=== PATIENT | male | born 1955 | race Caucasian/White ===

== ENCOUNTER 2019-05-20 13:24 | Inpatient (IN) ==
[2019-05-20] MEDS ORDERED: VANCOMYCIN 1 GM/NS 1 GM/250 ML IVPB IV ONE (16:24)
[2019-05-20 17:17] LABS: BASO# 0.03 X1000 (0.0-0.2); BASO% 0.3 % (0.0-0.8); EOS# 0.05 X1000 (0.0-0.7); EOS% 0.5 % (0.0-10.0); HEMATOCRIT 40.6 % (42.0-52.0); HEMOGLOBIN 14.4 g/dL (14.0-18.0); IMM GRAN# 0.03 X1000 (0.0-0.04); IMM GRAN% 0.3 % (0.0-0.5); LYMPH# 1.66 X1000 (1.2-3.4); LYMPH% 18.2 % (20.5-51.1); MCH 30.6 PG (27-31); MCHC 35.5 g/dL (33-37); MCV 86.2 FL (81-99); MONO# 0.62 X1000 (0.11-0.59); MONO% 6.8 % (1.7-9.3); MPV 11.2 FL (7.4-10.4); NEUT# 6.72 X1000 (1.4-6.5); NEUT% 73.9 % (42.2-75.2); PLT 144 X1000 (130-400); RBC 4.71 XMIL (4.7-6.1); RDW 12.5 % (11.5-14.5); WBC 9.11 X1000 (4.8-10.8)
[2019-05-20 18:05] LABS: AGAP 14; ALB/GLOB RATIO 1.3; ALBUMIN 3.7 g/dL (3.5-5.0); ALKALINE PHOSPHATASE 141 U/L (32-122); BUN 17 mg/dL (8-22); CALCIUM 8.7 mg/dL (8.8-10.2); CHLORIDE 97 mmol/L (98-107); COSMO 283; ESTIMATED GFR > 60; GLUCOSE 233 mg/dL (70-104); GOT 16 U/L (10-34); GPT 10 U/L (10-44); LIPASE 20 U/L (13-60); SODIUM 137 mmol/L (136-145); TCO2 26 mmol/L (25-35); TOTAL BILIRUBIN 0.77 mg/dL (0.20-1.00); TOTAL PROTEIN 6.6 g/dL (6.3-8.3)
[2019-05-20 18:14] LABS: URINE SOURCE CLEAN CATCH
[2019-05-20 18:30] LABS: BILIRUBIN URINE NEGATIVE (NEGATIVE); BLOOD URINE NEGATIVE (NEGATIVE); COLOR YELLOW; GLUCOSE URINE >1000 mg/dL (NEGATIVE); KETONE URINE 40 mg/dL (NEGATIVE); LEUKOCYTES URINE NEGATIVE (NEGATIVE); NITRITE URINE NEGATIVE (NEGATIVE); PROTEIN URINE TRACE mg/dL (NEGATIVE); SP GRAVITY URINE 1.034; TURBIDITY URINE CLEAR (CLEAR); UROBILINOGEN URINE 6 mg/dL (NORMAL)
[2019-05-20 19:04] LABS: UR EPITHELIAL CELLS <10 /HPF (<10); URINE BACTERIA NEGATIVE /HPF; URINE RBC <10 /HPF (<10); URINE WBC <10 /HPF (<10)
[2019-05-20 19:23] LABS: URINE CRYSTALS NONE SEEN
[2019-05-20] MEDS ORDERED: ROCEPHIN 1 GM in NS 50 ML IV ONE (19:39)
[2019-05-20] MEDS ORDERED: MORPHINE IV ONE (19:51)
--- NOTE | 2019-05-20 20:11 | PROVIDER DOCUMENTATION ---
This chart was entered by Joon Ramirez Scribe, acting as scribe for Claus Grimm MD. HPI-General Adult - General Chief Complaint: Abscess Stated Complaint: ABSCESS,FEVER Time Seen by Provider: 05/20/19 15:45 Source: patient Allergies/Adverse Reactions: Patient Allergies Allergy/AdvReac Type Severity Reaction Status Date / Time meperidine HCl * Allergy Severe Unknown Verified 05/20/19 16:42 [From Demerol] Home Medications: Home Medication List Medication Instructions Recorded Confirmed Last Taken Type Bupropion S.r. [Wellbutrin Sr] 150 mg PO BID 09/20/12 05/20/19 05/17/19 History Insulin Glargine [Lantus] 80 units SUBQ DAILY 09/20/12 05/20/19 05/17/19 History - History of Present Illness -Gen Adult Nature of Presenting Problems: Pt is a 63 yom who presents to the ED with a CC of an abscess. Pt reports he has had an abscess on his left buttocks. Pt reports he has had the abscess for five days. Pt also complains of having a fever. Pt reports he went to [facility] yesterday and states he had the abscess lanced and drained. Pt reports he had the abscess unpacked today and states he is worried about the infection spreading. Pt reports a hx of diabetes. Upon examination the pt has a 5cm abscess to the left inguinal fold of his left buttocks that is erythematic and has fluctuance. Pt reports he was put on antibiotics yesterday. Location of Pain/Injury: reports: other (Left buttocks) Quality of Pain: reports: aching Severity: reports: mild Onset/Duration: reports: 5 days ago Timing: reports: still present Associated Symptoms: reports: other (Abscess) Similar Symptoms Previously?: Yes Recently seen or treated by another doctor?: Yes Review of Systems - Adult - REVIEW OF SYSTEMS - ADULT Constitutional: reports: see HPI, fever Eyes: reports: no symptoms reported Ears, Nose, Mouth & Throat: reports: no symptoms reported Cardiovascular: reports: no symptoms reported Respiratory: reports: no symptoms reported Gastrointestinal: reports: no symptoms reported Genitourinary: reports: no symptoms reported Musculoskeletal: reports: no symptoms reported Integumentary: reports: see HPI, other (Abscess) Neurological: reports: no symptoms reported Psychiatric: reports: no symptoms reported Endocrine: reports: no symptoms reported Hematologic/Lymphatic: reports: no symptoms reported Allergic/Immunologic: reports: no symptoms reported All Other Systems: Reviewed and Negative Past History - Adult - PAST MEDICAL HISTORY-ADULT Review of Records: reports: Old Records Reviewed, Nursing Assessment Review, Medications Reviewed, Social history reviewed & non-contributory. Major Childhood Illnesses: reports: denies history Cardiovascular: reports: denies history Respiratory: reports: denies history Gastrointestinal: reports: denies history Obstetrical/Gynecological: reports: denies history Genitourinary: reports: denies history Musculoskeletal: reports: denies history Neurological: reports: denies history Endocrine/Immune: reports: Diabetes Diabetes Type: Type 2 Other Conditions: reports: other - IMMUNIZATION STATUS Childhood Immunizations: See Nurse Assessment Flu Vaccine: See Nurse Assessment - FAMILY HISTORY Family History: reviewed, not pertinent - SOCIAL HISTORY Smoking: denies, non-smoker Substance Use: none/never, denies Alcohol Use Frequency: never Physical Exam-General - PHYSICAL EXAM-ADULT Initial Vital Signs Reviewed: Yes - CONSTITUTIONAL General Appearance: alert, mild distress - EYES Eyes: PERRL/EOMI, pink conjunctivae - HEAD, EARS, NOSE, MOUTH & THROAT HENMT: normocephalic/atraumatic, moist mucous membranes - NECK Neck: non-tender, full range of motion - RESPIRATORY Respiratory: chest non-tender, lungs clear, normal breath sounds - CARDIOVASCULAR Cardiovascular: normal peripheral pulses, regular rate, rhythm, no edema - GASTROINTESTINAL (ABDOMEN) Abdominal Exam: non tender, soft - GENITOURINARY Rectal Exam: other (Abscess) - MUSCULOSKELETAL Extremity: normal range of motion, non-tender - SKIN Integumentary: erythema, tenderness, other (Abscess) - NEUROLOGIC Neurologic: grossly normal, no motor/sensory deficits - PSYCHIATRIC Psych/Mental Status: normal mood/affect, normal thought content, normal thought process, oriented x 3 Progress - PLAN OF CARE/RESULTS Progress/Plan/Lab Results: Vital Signs - 8 hr 05/20/19 13:28 Temperature 97.7 F Pulse Rate 92 H Respiratory Rate 18 Blood Pressure 156/76 O2 Sat by Pulse Oximetry 98 Proceed to admit with Dr. Ann hospitalist. He has insulin dependent diabetes mellitus. Noted left fluctulant area over inner gluteal fold on the left side. Purulent drainage and cellulitis visualized. Given vancomycin and rocephin per hospitalist request. Noted lactate and WBC benign levels. He has failed outpatient Bactrim therapy. Result Diagrams: 05/20/19 16:37 05/20/19 16:37 Departure - Departure Date of Disposition Decision: 05/20/19 Time of Disposition Decision: 20:10 DIAGNOSIS: Cellulitis and abscess of buttock, Insulin dependent diabetes mellitus Disposition: ADMITTED INPATIENT 09 Certified Medical Emergency: Emergent Condition: Fair Additional Instructions: ED Follow Up Instructions: You have been treated by a care provider in the Emergency Department. These instructions are being provided to you so you can have an understanding of how to care for yourself upon discharge. Upon discharge from the Emergency Department, you are responsible for making arrangements for follow-up care by a physician of your choice. Take all prescribed medications as directed. Return to the Emergency Department immediately for any new or worsening symptoms. You may call the Physician Referral phone number at [phone] to obtain a list of Physicians who are taking new patients. Referrals and Follow-Ups: Bryson Prabhakar MD [Primary Care Provider] - - Critical Care Note This patient required my direct & personal management of CC.: No Attestation - Physician/ CRISTOBAL Attestation Patient care was provided by Advanced Practice Provider:: No The physician spent face to face time with patient:: Yes Advanced Practice Provider documentation review:: Supervising physician onsite and consulted in the evaluation and care of this patient. The physician did have a face to face encounter with the patient. This chart was documented by the indicated scribe, (Joon Ramirez, Soumyaibilya) and accurately reflects the services I performed and decisions made by me, Claus Grimm MD, as attested by the provider's signature.
--- NOTE | 2019-05-20 21:38 | HISTORY AND PHYSICAL ---
PRIMARY CARE PHYSICIAN: Dr. Prabhakar. CHIEF COMPLAINT: Left gluteal pain. HISTORY OF PRESENTING ILLNESS: This is a 63-year-old male with a history of diabetes mellitus type 2 who recently underwent I and D of a gluteal abscess in his left gluteal region several days ago. He states that ever since that time the abscess was having more pus, draining and it was getting more erythema around the region. He was evaluated in the ED and the area seemed to have marked redness and tenderness consistent with cellulitis. Subsequently, he will require admission for further management. At the time of my examination, he denied any headache, fever, chills, chest pain, shortness of breath, hemoptysis or weight changes, but complained of gluteal pain. PAST MEDICAL HISTORY: Include diabetes mellitus type 2. PAST SURGICAL HISTORY: Right hip replacement, bilateral shoulder surgery, appendectomy. ALLERGIES: Demerol. CURRENT MEDICATIONS: Bupropion 150 mg p.o. b.i.d., Lantus 80 units subcu daily. SOCIAL HISTORY: No history of smoking, alcohol or illicit drug use. FAMILY HISTORY: No history of coronary disease. REVIEW OF SYSTEMS: Fourteen point review of system is as in HPI. Other systems negative. PHYSICAL EXAMINATION: GENERAL: Cooperative, friendly male, he is resting more comfortably now. VITAL SIGNS: Temperature 98.2 degrees, pulse 87, respirations 20, blood pressure 145/82. HEENT: Atraumatic, normocephalic. Extraocular movements intact. PERRLA. NECK: Supple. CHEST: Clear to auscultation. CARDIOVASCULAR: Regular rate and rhythm. ABDOMEN: Soft. Positive bowel sounds. : Left gluteal abscesses that is draining and there is moderate erythema there. SKIN: Warm. NEUROLOGIC: Nonfocal. LABORATORIES AND STUDIES: WBCs 9.11, hemoglobin 14.4, hematocrit 40.6, platelets 144,000. Sodium 137, potassium 4.0, chloride 97, CO2 26, BUN is 17, creatinine is 1.0, glucose is 233. ASSESSMENT: This is a 63-year-old male with a history of diabetes mellitus type 2 who recently underwent incision and drainage of a gluteal abscess at an urgent care. Patient states that since that time the area air around his gluteal region was getting more erythema and tenderness. He was evaluated in the emergency department. There is moderate drainage and erythema noted consistent with cellulitis. Subsequently, he will require admission for further management. 1. Left gluteal abscess/cellulitis. 2. Diabetes mellitus type 2. PLAN: 1. We will admit patient to medical floor. 2. We will start patient on IV antibiotics and check wound cultures. 3. Continue with wound care. 4. Monitor blood glucose. Put patient on sliding scale insulin regimen. 5. Put patient on DVT prophylaxis SCD. 6. We will continue to follow and reassess. Make further recommendation based on patient's clinical course. cc: Tom Ann MD
[2019-05-20] MEDS ORDERED: WELLBUTRIN SR PO SCH (23:56)
[2019-05-20] MEDS ORDERED: VANCOMYCIN IV PER PHARMACY MISC SCH (23:56)
[2019-05-21] MEDS: CYMBALTA PO SCH ×2 (00:54→20:45)
[2019-05-21] MEDS: NS 1,000 ML IV SCH ×3 (00:55→20:45)
[2019-05-21] MEDS ORDERED: VANCOMYCIN 2,250 MG in NS 500 ML IV SCH (01:00)
[2019-05-21] MEDS: HUMULIN R SUBQ SCH ×5 (01:51→20:45)
[2019-05-21 06:57] LABS: BASO# 0.02 X1000 (0.0-0.2); BASO% 0.3 % (0.0-0.8); EOS# 0.06 X1000 (0.0-0.7); HEMATOCRIT 36.6 % (42.0-52.0); IMM GRAN# 0.03 X1000 (0.0-0.04); IMM GRAN% 0.5 % (0.0-0.5); LYMPH# 1.32 X1000 (1.2-3.4); LYMPH% 21.5 % (20.5-51.1); MCH 30.4 PG (27-31); MCHC 35.5 g/dL (33-37); MCV 85.7 FL (81-99); MONO# 0.47 X1000 (0.11-0.59); MONO% 7.7 % (1.7-9.3); MPV 10.9 FL (7.4-10.4); NEUT# 4.23 X1000 (1.4-6.5); PLT 125 X1000 (130-400); RBC 4.27 XMIL (4.7-6.1); RDW 12.2 % (11.5-14.5); WBC 6.13 X1000 (4.8-10.8)
[2019-05-21 07:11] LABS: HEMOGLOBIN A1C 9.8 % (4.8-6.0)
[2019-05-21 07:16] LABS: AGAP 6; BUN 13 mg/dL (8-22); CALCIUM 7.8 mg/dL (8.8-10.2); CHLORIDE 101 mmol/L (98-107); COSMO 272; CREATININE 0.7 mg/dL (0.7-1.2); ESTIMATED GFR > 60; GLUCOSE 162 mg/dL (70-104); POTASSIUM 3.6 mmol/L (3.5-5.1); SODIUM 134 mmol/L (136-145); TCO2 27 mmol/L (25-35)
--- NOTE | 2019-05-21 09:14 | PROGRESS NOTE ---
DATE: 05/21/2019 He is a patient of Dr. Prabhakar was admitted on 05/20/2019. HISTORY: He had left gluteal pain. A 63-year-old with a history of diabetes mellitus type 2 who recently underwent I and D of gluteal abscess of left gluteal region several days ago. States that since that time, the abscess was having more pus draining and it was getting more erythema around the periphery. He was evaluated in the emergency room. It seemed to have marked redness and tenderness, consistent with cellulitis, and so was admitted for further treatment. PAST MEDICAL HISTORY: Diabetes mellitus type 2. SURGICAL HISTORY: Right hip replacement, bilateral shoulder surgery, and appendectomy. PHYSICAL EXAMINATION: Vital Signs: Today, temperature 97.9 degrees, pulse 77, respirations 18, blood pressure 149/77. Pupils are equal and round. Lungs are clear in all lung elliott. Cardiovascular Examination: Regular rhythm and rate without murmur or S3. Abdomen is soft. Skin is warm and dry. LABORATORY DATA: Reviewed lab from yesterday. White count was 6130, hematocrit was 36, platelet count 125,000. Sodium 135, potassium 3.6, chloride 101, BUN 13, creatinine 0.7. ASSESSMENT AND PLAN: 1. Left gluteal abscess, cellulitis. Continue present antibiotics, topical care. When I came to examine him, he had just had a bowel movement which he said he had not had one in a couple of days and so need to get him cleaned up. He was unable to make it to the restroom. 2. Diabetes mellitus type 2. Continue to check pattern of sugars. REVIEW OF HIS ORDERS: He is on Cymbalta 90 mg at bedtime, ceftriaxone 1 g IV q.24 hours, vancomycin 2.250 mg q.18 hours. He got one dose of vancomycin yesterday. cc: Da Aranda MD
[2019-05-21] MEDS: VANCOMYCIN 1,500 MG in NS 250 ML IV SCH (14:36)
[2019-05-21] MEDS ORDERED: TYLENOL PO ONE (19:22)
[2019-05-21] MEDS: ROCEPHIN 1 GM in NS 50 ML IV SCH (20:44)
[2019-05-22] MEDS: VANCOMYCIN 1,500 MG in NS 250 ML IV SCH (02:58)
[2019-05-22] MEDS: HUMULIN R SUBQ SCH ×4 (06:15→21:51)
--- NOTE | 2019-05-22 10:17 | PROGRESS NOTE ---
DATE: 05/22/2019 SUBJECTIVE: Mr. Snow is still uncomfortable around the rectum. He appears to have a perirectal abscess, which appears to be draining. It is very fluctuant. There is quite a bit of material that looks like it could be expressed. It was I and D'd in the emergency room. OBJECTIVE: Vital Signs: Temp 98 degrees, pulse 68, respirations 16, blood pressure 144/71. HEENT: Pupils are equal and round. Lungs: Clear in all lung elliott. Cardiovascular: Regular rhythm and rate without murmur or S3. Abdomen: Soft. Skin: Warm and dry. ASSESSMENT AND PLAN: 1. Left gluteal abscess, perirectal. I am going to ask Surgery, Dr. Jonah East, to look at it and see if it looks like there is quite a bit of caseous material still. Overall, I think he is better. Continue present antibiotics. 2. Diabetes mellitus type 2. Sugar is under good control on ceftriaxone and vancomycin. cc: Da Aranda MD
[2019-05-22] MEDS: VANCOMYCIN 1,750 MG in NS 250 ML IV SCH (16:06)
[2019-05-22] MEDS: NORCO-7.5 PO PRN ×2 (16:06→21:50)
[2019-05-22] MEDS: ROCEPHIN 1 GM in NS 50 ML IV SCH (17:53)
[2019-05-22] MEDS: CYMBALTA PO SCH (21:50)
[2019-05-23] MEDS: VANCOMYCIN 1,750 MG in NS 250 ML IV SCH ×2 (04:53→16:05)
[2019-05-23] MEDS: NORCO-7.5 PO PRN ×2 (04:53→19:40)
[2019-05-23] MEDS: HUMULIN R SUBQ SCH ×4 (06:26→22:05)
[2019-05-23 07:32] LABS: BASO# 0.03 X1000 (0.0-0.2); BASO% 0.5 % (0.0-0.8); EOS# 0.11 X1000 (0.0-0.7); EOS% 1.8 % (0.0-10.0); HEMATOCRIT 37.7 % (42.0-52.0); HEMOGLOBIN 13.3 g/dL (14.0-18.0); LYMPH% 23.5 % (20.5-51.1); MCH 30.9 PG (27-31); MCHC 35.3 g/dL (33-37); MCV 87.5 FL (81-99); MONO# 0.58 X1000 (0.11-0.59); MONO% 9.7 % (1.7-9.3); MPV 10.6 FL (7.4-10.4); NEUT# 3.83 X1000 (1.4-6.5); NEUT% 64.5 % (42.2-75.2); PLT 133 X1000 (130-400); RBC 4.31 XMIL (4.7-6.1); RDW 12.5 % (11.5-14.5); WBC 5.95 X1000 (4.8-10.8)
[2019-05-23 07:55] LABS: POTASSIUM 3.6 mmol/L (3.5-5.1); SODIUM 141 mmol/L (136-145)
[2019-05-23 07:56] LABS: AGAP 11; BUN 7 mg/dL (8-22); CALCIUM 8.3 mg/dL (8.8-10.2); CHLORIDE 105 mmol/L (98-107); COSMO 281; CREATININE 0.6 mg/dL (0.7-1.2); ESTIMATED GFR > 60; GLUCOSE 127 mg/dL (70-104); TCO2 25 mmol/L (25-35)
[2019-05-23] MEDS ORDERED: QUELICIN (DOSE) ONE (10:12)
[2019-05-23] MEDS ORDERED: DIPRIVAN 1% ONE (10:12)
[2019-05-23] MEDS ORDERED: FENTANYL ONE (10:12)
[2019-05-23] MEDS ORDERED: ROBINUL ONE (10:12)
[2019-05-23] MEDS ORDERED: XYLOCAINE-MPF 2% ONE (10:13)
[2019-05-23] MEDS ORDERED: ZOFRAN ONE (11:27)
[2019-05-23] MEDS ORDERED: HYDROGEN PEROXIDE SOLUTION ONE (11:31)
[2019-05-23] MEDS: DILAUDID ONE ×4 (12:00→12:26)
--- NOTE | 2019-05-23 16:43 | PROGRESS NOTE ---
DATE: 05/23/2019 SUBJECTIVE: Mr. Snow has just finished coming back from surgery. Appreciate Dr. East help. Had further drainage of perirectal abscess. Presented with cellulitis. He remains afebrile. OBJECTIVE: Vital Signs: Temperature 97.5 degrees, pulse 72, respirations 19, blood pressure 143/70. Eyes: Pupils are equal and round. Lungs: Clear in all lung elliott. Cardiovascular exam: Regular rhythm and rate without murmur or S3. Abdomen: Soft. Skin: Skin is warm and dry. Blood sugar 156, 108 and 139. ASSESSMENT AND PLAN: 1. Left gluteal abscess, perirectal for incision and drainage and further drainage. Continue present antibiotics. May require wound VAC. 2. Diabetes mellitus type 2. Sugars under good control. Review of orders: On Cymbalta 90 mg at bedtime, hydrocodone 7.5 mg q. 6 hours p.r.n., ceftriaxone 1 g IV q. 24 hours and vancomycin. Wound culture grew out Streptococcus agalactiae and Escherichia coli, 2 different strains, and they appear sensitive; Strep agalactiae sensitive to vancomycin and Escherichia coli seems to be sensitive to ceftriaxone. cc: Da Aranda MD
--- NOTE | 2019-05-23 18:04 | OPERATIVE NOTE ---
PROCEDURE DATE: 05/23/2019 PREOPERATIVE DIAGNOSIS: Left perirectal abscess. POSTOPERATIVE DIAGNOSIS: Left perirectal abscess. PROCEDURE: Debridement. SURGEON: Jonah East MD. DESCRIPTION OF PROCEDURE: The patient was brought to the operating room. After satisfactory induction of IV and LMA anesthesia, he was placed in the formerly named [facility] stirrups. His perineum was prepped and draped in the appropriate manner. There was a large necrotic left-sided perirectal abscess. It was sharply debrided of necrotic skin and subcutaneous tissue. Previous cultures have revealed E. coli and strep agalactiae. The wound was debrided. Hemostasis was obtained by electrocautery. It was irrigated with peroxide and packed with a Betadine-soaked Kerlix. Sterile dressing was applied as well as mesh panties. He was awakened and extubated in the operating room and transferred to Recovery. ESTIMATED BLOOD LOSS: 10-20 mL. cc: Jonah East MD
[2019-05-23] MEDS: CYMBALTA PO SCH (22:04)
[2019-05-23] MEDS: ROCEPHIN 1 GM in NS 50 ML IV SCH (22:05)
[2019-05-24] MEDS: VANCOMYCIN 1,750 MG in NS 250 ML IV SCH ×2 (03:19→15:36)
[2019-05-24] MEDS: NORCO-7.5 PO PRN (03:26)
[2019-05-24] MEDS: HUMULIN R SUBQ SCH ×4 (06:24→21:34)
[2019-05-24 07:13] LABS: BASO# 0.02 X1000 (0.0-0.2); BASO% 0.4 % (0.0-0.8); EOS# 0.11 X1000 (0.0-0.7); EOS% 2.1 % (0.0-10.0); HEMATOCRIT 38.2 % (42.0-52.0); HEMOGLOBIN 13.4 g/dL (14.0-18.0); IMM GRAN# 0.02 X1000 (0.0-0.04); IMM GRAN% 0.4 % (0.0-0.5); LYMPH# 1.44 X1000 (1.2-3.4); LYMPH% 27.9 % (20.5-51.1); MCH 30.6 PG (27-31); MCHC 35.1 g/dL (33-37); MCV 87.2 FL (81-99); MONO# 0.43 X1000 (0.11-0.59); MONO% 8.3 % (1.7-9.3); MPV 10.5 FL (7.4-10.4); NEUT# 3.14 X1000 (1.4-6.5); NEUT% 60.9 % (42.2-75.2); PLT 147 X1000 (130-400); RBC 4.38 XMIL (4.7-6.1); RDW 12.4 % (11.5-14.5); WBC 5.16 X1000 (4.8-10.8)
[2019-05-24 07:54] LABS: AGAP 10; BUN 7 mg/dL (8-22); CALCIUM 8.7 mg/dL (8.8-10.2); CHLORIDE 103 mmol/L (98-107); COSMO 285; CREATININE 0.7 mg/dL (0.7-1.2); ESTIMATED GFR > 60; GLUCOSE 170 mg/dL (70-104); POTASSIUM 4.6 mmol/L (3.5-5.1); SODIUM 142 mmol/L (136-145); TCO2 29 mmol/L (25-35)
--- NOTE | 2019-05-24 09:48 | PROGRESS NOTE ---
DATE: 05/24/2019 SUBJECTIVE: Mr. Snow feels better. He remains afebrile. Got a little bit of sleep last night. OBJECTIVE: Vital Signs: Temperature 98.2 degrees, pulse 70, respirations 18, blood pressure 148/65. HEENT: Pupils are equal and round. Lungs: Clear in all lung elliott. Cardiovascular: Regular rate without murmur or S3. Abdomen: Soft. Skin: Warm and dry. ASSESSMENT AND PLAN: 1. Incision and drainage of perirectal abscess, improved, still draining. Continue vancomycin 1750 mg IV q.12h and ceftriaxone 1 g q.24 hours. 2. He does have diabetes. Blood sugar is under good control. Last 2 numbers 141 and 170. cc: Da Aranda MD
[2019-05-24] MEDS: ROCEPHIN 1 GM in NS 50 ML IV SCH (18:22)
[2019-05-24] MEDS: CYMBALTA PO SCH (21:33)
[2019-05-25] MEDS: VANCOMYCIN 1,750 MG in NS 250 ML IV SCH ×2 (03:57→16:54)
[2019-05-25] MEDS: HUMULIN R SUBQ SCH ×4 (06:02→21:16)
--- NOTE | 2019-05-25 09:56 | PROGRESS NOTE ---
DATE: 05/25/2019 SUBJECTIVE: Mr. Snow is sleeping, resting comfortably, and he feels better. His perirectal area has drained, looked better, so continue topical care and present antibiotics. See if he needs any more debridement on Monday. OBJECTIVE: Vital Signs: Temperature 98.1 degrees, pulse 84, respirations 16, blood pressure 132/52. Eyes: Pupils are equal and round. Lungs: Clear in all lung elliott. Cardiovascular exam: Regular rhythm and rate without murmur or S3. Abdomen: Abdomen is soft. Skin: Skin is warm and dry. : Urine output was over a liter. ASSESSMENT AND PLAN: 1. Incision of perirectal abscess. Continue vancomycin and ceftriaxone. Doing much better. 2. Diabetes mellitus type 2. Sugars under good control. 3. Obesity. Review of orders: He is on Cymbalta 90 mg at bedtime, hydrocodone 7.5 mg q. 6 hours p.r.n., ceftriaxone 1 g q. 24 hours, vancomycin 1750 mg IV q. 12 hours. cc: Da Aranda MD
[2019-05-25] MEDS: ROCEPHIN 1 GM in NS 50 ML IV SCH (18:20)
[2019-05-25] MEDS: CYMBALTA PO SCH (21:15)
[2019-05-26] MEDS: VANCOMYCIN 1,750 MG in NS 250 ML IV SCH ×2 (03:09→15:43)
[2019-05-26] MEDS: HUMULIN R SUBQ SCH ×4 (06:34→20:58)
--- NOTE | 2019-05-26 12:56 | PROGRESS NOTE ---
DATE: 05/26/2019 SUBJECTIVE: Mr. Snow is feeling better, much less pain. His perirectal area looks like it would not need any further drainage, so hopefully he can go home tomorrow on p.o. antibiotics. Plan to keep him on antibiotics for 2 weeks. He has grown out several organisms from his wound, strep agalactiae and 2 different strains of Escherichia coli. Note that he does not have any extended-spectrum beta lactamase-producing organisms and is sensitive. It looks like we should get good sensitivity to Levaquin, so the plan is to give him 750 mg of Levaquin daily for 2 weeks. OBJECTIVE: Vital Signs: Today, temperature 97.9 degrees, pulse 80, respirations 18, blood pressure 158/69. HEENT: Pupils are equal and round. Lungs: Clear in all lung elliott. Cardiovascular: Regular rhythm and rate without murmur or S3. LABORATORY DATA: Blood sugar is 349, 215, and 205. ASSESSMENT AND PLAN: 1. Incision in the perirectal abscess, on vancomycin and ceftriaxone. Continue intravenous antibiotics. Plan to discharge tomorrow, and leave him on Levaquin for 2 weeks, 750 mg by mouth daily. 2. Diabetes mellitus type 2. Sugar is under good control. 3. Obesity. Encourage weight reduction, low-carbohydrate diet. Note his lab from 05/24/2019 is unremarkable. Blood sugar is still running a little high. At home, he was taking Lantus insulin 80 units a day, so will put him back on that. cc: Da Aranda MD
[2019-05-26] MEDS: LANTUS INSULIN SUBQ SCH (13:18)
[2019-05-26] MEDS: ROCEPHIN 1 GM in NS 50 ML IV SCH (18:24)
[2019-05-26] MEDS: CYMBALTA PO SCH (20:57)
[2019-05-26] MEDS ORDERED: CYMBALTA PO SCH (21:00)
[2019-05-27] MEDS: VANCOMYCIN 1,750 MG in NS 250 ML IV SCH (05:15)
[2019-05-27] MEDS: HUMULIN R SUBQ SCH (05:21)
[2019-05-27 08:05] VITALS: BP 150/76
[2019-05-27] MEDS: LANTUS INSULIN SUBQ SCH (08:17)
--- NOTE | 2019-05-27 10:53 | DISCHARGE SUMMARY ---
ADMISSION DATE: 05/20/2019 DISCHARGE DATE: He is a patient of Dr. Bryson Prabhakar. He had left gluteal pain. A 63-year-old with a history of diabetes mellitus type 2. Underwent I and D of gluteal abscess with a left perirectal abscess several days ago. Since that time, he has had more drainage and more irritation and more erythema, and so came to the hospital. In the hospital, we started IV antibiotics. Dr. Jonah East further lanced it and opened it, and it drained out very well, and had pretty good relief from pain. He grew out multiple organisms from his wound, but all of them sensitive to Levaquin. Plan to let him go home. He had instructions on wound dressing, and blood sugars have been under fairly good control. Continue his medications and his current insulin. I think he is on 80 units of Lantus once a day, he takes Cymbalta 90 mg a day, hydrocodone 7.5 mg every 6 hours, and I will give him Levaquin 750 mg p.o. daily. Follow up with Dr. Bryson Prabhakar in a couple weeks. Follow up with Dr. Jonah East in a couple weeks. cc: Da Aranda MD
== END 2019-05-27 11:46 | disposition home or self-care (01) | DRG 581 ==
LOC: ED 13:24 → 3N 13:25 → SUATTDRO 13:25
PROVIDERS: ATTEND Emergency Medicine